=== PATIENT | male | born 1990 | race Two or more races ===

== ENCOUNTER 2024-05-17 16:04 | Emergency (ER) | payer MEDICAID, SELFPAY ==
[2024-05-17 16:05] VITALS: BMI 30.4
[2024-05-17 16:46] VITALS: BP 101/67; PULSE 100; RESP 18; TEMP 37.1; O2SAT 99
--- NOTE | 2024-05-17 17:06 | EDNOTE_ITS ---
ED Skin Abcess FB-RME/HPI General Chief complaint: Skin/Abscess/Foreign Body Stated complaint: SORE ON COCCYX X 4 DAYS Time Seen by Provider: 05/17/24 16:06 Arrival date/time: 05/17/24 16:04 34-year-old male with no reported medical problems presents to the emergency department complaints of 4-day history of abscess to his coccyx. Patient reports no fever nausea vomiting does report significant pain Limitations: no limitations Related Data Previous Rx's ?Medication ?Instructions ?Recorded clindamycin HCl 300 mg capsule 300 mg PO QID #40 caps 08/19/17 ibuprofen 600 mg tablet 600 mg PO Q8H PRN fever #30 tabs 08/19/17 ibuprofen 600 mg tablet 600 mg PO TID PRN pain #14 tabs 02/17/24 ondansetron 4 mg disintegrating 4 mg PO Q8H PRN nausea and 02/17/24 tablet vomiting #20 tabs clindamycin HCl 150 mg capsule 450 mg (3 x 150 mg) PO TID 7 days 05/17/24 #63 caps hydrocodone 5 mg-acetaminophen 325 1 tab PO BID PRN pain #10 tabs 05/17/24 mg tablet ibuprofen 800 mg tablet 800 mg PO TID PRN pain #30 tabs 05/17/24 Allergies Allergy/AdvReac Type Severity Reaction Status Date / Time avocado Allergy Severe SWELLING Verified 05/17/24 16:07 Review of Systems Review of Systems Systems Reviewed: All systems reviewed, normal except as documented Constitutional Constitutional: Reports system reviewed and no additional complaints, except as documented, Denies fever(s) and Denies headache(s) Eyes Eyes: Reports system reviewed and no additional complaints, except as documented and Denies blurry vision ENT Ears, Nose, Mouth, and Throat: Reports system reviewed and no additional complaints, except as documented, Denies headache(s), Denies nasal congestion and Denies nasal discharge Cardiovascular Cardiovascular: Reports system reviewed and no additional complaints, except as documented, Denies chest pain and Denies dyspnea Respiratory Respiratory: Reports system reviewed and no additional complaints, except as documented, Denies chest congestion, Denies cough and Denies dyspnea Gastrointestinal Gastrointestinal: Reports system reviewed and no additional complaints, except as documented and Denies abdominal pain Integumentary/Breasts Skin/Breast: Reports system reviewed and no additional complaints, except as documented, Denies rash and Reports other (Infected pilonidal cyst) Neurologic Neurologic: Reports system reviewed and no additional complaints, except as documented, Reports as per HPI and Denies headache(s) Past Medical History Past Medical History NEUROLOGIC: Negative Neurological Disorders CARDIAC: Negative Cardiac Disorders or Congestive Heart Failure RESPIRATORY: Positive Asthma; Negative Chronic Obstructive Pulmonary Disease (COPD) GASTROINTESTINAL: Negative Gastrointestinal Disorders or Hepatitis GENITOURINARY: Negative Genitourinary Disorders, Renal Disease or Prostate Cancer MUSCULOSKELETAL: Negative Musculoskeletal Disorders ENDOCRINE: Negative Endocrine Disorders, Diabetes Mellitus Type 1 or Diabetes Mellitus Type 2 HEMATOLOGIC: Negative Blood Disorders OTHER HISTORY: Negative Autoimmune Disease, Organ Transplant, MRSA, VRSA, Vancomycin-Resistant Enterococci, Human Immunodeficiency Virus (HIV), Chicken Pox, Measles, Mumps, Rubella (Danish Measles), Pertussis, Clostridium Difficile or Prostate Cancer Surgical History SURGICAL: Negative Cardiac Surgery, Endocrine Surgery, Ear Surgery, Abdominal Surgery, Nephrectomy, Joint Replacement, Neurologic Surgery, Vasectomy or Organ Transplant Social History SMOKING STATUS: Never smoker ED Exam General Limitations: Present no limitations General appearance: Present alert and in no apparent distress Head Head exam: Present atraumatic, normocephalic and normal inspection Eye Eye exam: Present normal appearance, PERRL and EOMI; Absent conjunctival injection ENT ENT exam: Present normal exam, normal oropharynx and mucous membranes moist Neck Neck exam: Present normal inspection, full ROM and trachea midline Chest Chest inspection: Present normal inspection and symmetric chest wall rise Respiratory Respiratory exam: Present normal lung sounds bilaterally Cardiovascular Cardiovascular exam: Present regular rate, normal rhythm and normal heart sounds Abdominal Exam Abdominal exam: Present soft and normal bowel sounds Extremities Exam Extremities exam: Present normal inspection and full ROM Back Exam Back exam: Present normal inspection, full ROM and tenderness (Pilonidal cyst infected) Neurological Exam Neurological exam: Present alert, oriented X3 and CN II-XII intact Psychiatric Psychiatric exam: Present normal affect and normal mood Skin Skin exam: Present warm, dry and other (Pilonidal cyst infected) Course Quality Measures none Orders Category Date Time Status Set Up Suture Tray STAT Care 05/17/24 16:39 Completed Wound Care NOW Care 05/17/24 16:39 Completed Lidocaine 1% 20 ml [Xylocaine 1% 20 ML] Med 05/17/24 16:40 Discontinued 2.1 ml INFL X1 ONE Lidocaine 1% 20 ml [Xylocaine 1% 20 ML] Med 05/17/24 16:38 Discontinued 20 ml INFL X1 ONE Tet,Diphth,Pertuss(Acell)-Tdap [Boostrix Vacc] Med 05/17/24 16:38 Discontinued 0.5 ml IMI .ONCE ONE cefTRIAXone [Rocephin] Med 05/17/24 16:40 Discontinued 1,000 mg IM X1 ONE Vital Signs Vital signs: Vital Signs Temperature 98.7 F 05/17/24 16:46 Pulse Rate 100 05/17/24 16:46 Respiratory Rate 18 05/17/24 16:46 Blood Pressure 101/67 05/17/24 16:46 Pulse Oximetry (%) 99 05/17/24 16:46 Oxygen Delivery Method Room Air 05/17/24 16:46 O2 saturation 99% room air within normal limits Procedures -ED Abscess I/D Site: other (Pilonidal cyst) Sedation/analgesia: none Local Anesthetic: lidocaine 1% Amount of anesthesia used (mL): 6 Technique: incised with #11 blade Amount of fluid expressed (mL): 30 Irrigation: Yes Packing used?: none Complications: pain Skin / Abscess / Foreign Body MDM Narrative MDM Narrative:: 34-year-old male with no reported medical problems presents to the emergency department complaints of 4-day history of abscess to his coccyx. Patient reports no fever nausea vomiting does report significant pain On exam patient has a large pilonidal cyst which appears to be infected no evidence of perianal abscess I&D performed and copious amounts of drainage/purulent material removed from the abscess Patient given Rocephin as well as pain medication tetanus updated Patient instructed to return tomorrow for repeat Rocephin injection Consultation: I spoke with Dr. Monteiro who states she will see the patient in her office on Patient data External records reviewed:: [facility] previous records Clinical information provided by:: patient Social determinants that could affect healthcare access:: none Patient has the following chronic illnesses:: None How is presenting disease/condition affected by chronic disease/condition?: no chronic disease Evaluation data The following diagnostics were reviewed and interpreted by me:: other (specify) (N/A) Lab and/or radiology exams considered but not ordered:: N/A Interpretation Summary: N/A Medications / Prescriptions Medications or Prescriptions considered but not ordered:: Given Medication administrations:: Medication Administration History Discontinued Medications Ceftriaxone Sodium (Ceftriaxone Sod Inj 1,000 Mg Vial) 1,000 mg IM X1 ONE Stop: 05/17/24 16:41 Last Admin: 05/17/24 17:26 Dose: 1,000 mg Documented By: Diphtheria/Tetanus/Acell Pertussis (Diphth,Pertuss(Acell),Tet Vac 0.5 Ml Vial) 0.5 ml IMi .ONCE ONE Stop: 05/17/24 16:39 Last Admin: 05/17/24 17:27 Dose: 0.5 ml Documented By: Lidocaine HCl (Lidocaine Hcl 1% 20 Ml Vial) 20 ml INFL X1 ONE Stop: 05/17/24 16:39 Last Admin: 05/17/24 17:25 Dose: 20 ml Documented By: Lidocaine HCl (Lidocaine Hcl 1% 20 Ml Vial) 2.1 ml INFL X1 ONE Stop: 05/17/24 16:41 Last Admin: 05/17/24 17:28 Dose: 2.1 ml Documented By: Given Consultations Consultation(s) initiated? (list below): Yes Consultation #1 (Physician, Specialty, Details): Dr. Monteiro Diagnosis Skin/Abscess Differential Diagnosis: abscess of skin or subcutaneous tissue and cellulitis Most likely diagnosis given after review of the tests above:: Infected pilonidal cyst Admission Indicated Admission indicated?: not indicated Admission Request Was there a request for admission?: No Disposition Plan Disposition Plan: Discharge Discharge Attestation Discharge Attestation: The patient and all family members were given an opportunity to ask questions and understood the discharge instructions. Discharge instructions specifically effects, indications for sooner follow up or return to the emergency department, and the expected course of current diagnosis. Patient condition: Stable Discharge Plan Plan Patient Disposition: HOME (Self Care) Disposition Comment: Stable Prescriptions/Referrals Prescriptions/Med Rec: New ibuprofen 800 mg tablet 800 mg PO TID PRN (Reason: pain) Qty: 30 0RF hydrocodone-acetaminophen 5-325 mg tablet 1 tab PO BID MDD 10 PRN (Reason: pain) Qty: 10 0RF clindamycin HCl 150 mg capsule 450 mg PO TID 7 Days Qty: 63 0RF No Action clindamycin HCl 300 mg capsule 300 mg PO QID Qty: 40 0RF ibuprofen 600 mg tablet 600 mg PO Q8H PRN (Reason: fever) Qty: 30 0RF ondansetron 4 mg tablet,disintegrating 4 mg PO Q8H PRN (Reason: nausea and vomiting) Qty: 20 0RF ibuprofen 600 mg tablet 600 mg PO TID PRN (Reason: pain) Qty: 14 0RF Referrals: Taisha Monteiro MD [Physician] - 05/21/24 9:00 am Problem List Clinical Impression: Infected pilonidal cyst Patient/Caregiver Discharge Instructions Education Materials: ED Cyst Pilonidal Infected IandD Additional Instructions: Please return tomorrow for repeat antibiotic injection Please call the office of Dr. Monteiro tomorrow for an appointment for inform them that you were seen in the emergency department and she states that she will see you in her office Print Language: Greenlandic Stand Alone Forms: Dorina Award Info., Patient Portal Info Letter Vaccines Vaccines Given During Stay: TDaP PA/UPHOLSTERY INSTRUCTOR Supervising Physician PA/UPHOLSTERY INSTRUCTOR Supervising Physician: Dr mccarthy
[2024-05-17] MEDS: LIDOCAINE HCL 1% 20 ML VIAL INFL (17:25)
[2024-05-17] MEDS: cefTRIAXone SOD INJ 1,000 MG VIAL 1000 MG IM (17:26)
[2024-05-17] MEDS: DIPHTH,PERTUSS(ACELL),TET VAC 0.5 ML VIAL IMi (17:27)
[2024-05-17] MEDS: LIDOCAINE HCL 1% 20 ML VIAL 2.1 ML INFL (17:28)
== END 2024-05-17 17:29 | disposition home or self-care (01) ==
PROVIDERS: Emergency Provider Emergency Medicine
DX: L05.91 Pilonidal cyst without abscess (principal); Z23 Encounter for immunization
CPT/HCPCS: 10080; 90471; 90715; 96372; 99283; J0696; J3490

== ENCOUNTER 2024-05-18 16:46 | Emergency (ER) | payer MEDICAID, SELFPAY ==
[2024-05-18 16:52] VITALS: BP 106/69; PULSE 86; RESP 18; TEMP 36.8; O2SAT 99; BMI 28.8
--- NOTE | 2024-05-18 17:10 | EDNOTE_ITS ---
ED Skin Abcess FB-RME/HPI General Chief complaint: Recheck/Abnormal Lab/Rx Stated complaint: RETURNING FOR REPEAT ABX INJECTION Time Seen by Provider: 05/18/24 17:10 Arrival date/time: 05/18/24 16:46 34-year-old male presents to the emergency department today patient was directed by myself to return today for repeat injection of antibiotics patient had a large pilonidal cyst which was drained by myself yesterday Limitations: no limitations Related Data Previous Rx's ?Medication ?Instructions ?Recorded clindamycin HCl 300 mg capsule 300 mg PO QID #40 caps 08/19/17 ibuprofen 600 mg tablet 600 mg PO Q8H PRN fever #30 tabs 08/19/17 ibuprofen 600 mg tablet 600 mg PO TID PRN pain #14 tabs 02/17/24 ondansetron 4 mg disintegrating 4 mg PO Q8H PRN nausea and 02/17/24 tablet vomiting #20 tabs clindamycin HCl 150 mg capsule 450 mg (3 x 150 mg) PO TID 7 days 05/17/24 #63 caps hydrocodone 5 mg-acetaminophen 325 1 tab PO BID PRN pain #10 tabs 05/17/24 mg tablet ibuprofen 800 mg tablet 800 mg PO TID PRN pain #30 tabs 05/17/24 Allergies Allergy/AdvReac Type Severity Reaction Status Date / Time avocado Allergy Severe SWELLING Verified 05/17/24 16:07 Review of Systems Review of Systems Systems Reviewed: All systems reviewed, normal except as documented Constitutional Constitutional: Reports system reviewed and no additional complaints, except as documented, Denies fever(s) and Denies headache(s) Eyes Eyes: Reports system reviewed and no additional complaints, except as documented and Denies blurry vision ENT Ears, Nose, Mouth, and Throat: Reports system reviewed and no additional complaints, except as documented, Denies headache(s), Denies nasal congestion and Denies nasal discharge Cardiovascular Cardiovascular: Reports system reviewed and no additional complaints, except as documented, Denies chest pain and Denies dyspnea Respiratory Respiratory: Reports system reviewed and no additional complaints, except as documented, Denies chest congestion, Denies cough and Denies dyspnea Gastrointestinal Gastrointestinal: Reports system reviewed and no additional complaints, except as documented and Denies abdominal pain Integumentary/Breasts Skin/Breast: Reports system reviewed and no additional complaints, except as documented, Denies rash and Reports wounds (Pilonidal cyst) Neurologic Neurologic: Reports system reviewed and no additional complaints, except as documented, Reports as per HPI and Denies headache(s) Past Medical History Past Medical History NEUROLOGIC: Negative Neurological Disorders CARDIAC: Negative Cardiac Disorders or Congestive Heart Failure RESPIRATORY: Positive Asthma; Negative Chronic Obstructive Pulmonary Disease (COPD) GASTROINTESTINAL: Negative Gastrointestinal Disorders or Hepatitis GENITOURINARY: Negative Genitourinary Disorders, Renal Disease or Prostate Cancer MUSCULOSKELETAL: Negative Musculoskeletal Disorders ENDOCRINE: Negative Endocrine Disorders, Diabetes Mellitus Type 1 or Diabetes Mellitus Type 2 HEMATOLOGIC: Negative Blood Disorders OTHER HISTORY: Negative Autoimmune Disease, Organ Transplant, MRSA, VRSA, Vancomycin-Resistant Enterococci, Human Immunodeficiency Virus (HIV), Chicken Pox, Measles, Mumps, Rubella ([place] Measles), Pertussis, Clostridium Difficile or Prostate Cancer Surgical History SURGICAL: Negative Cardiac Surgery, Endocrine Surgery, Ear Surgery, Abdominal Surgery, Nephrectomy, Joint Replacement, Neurologic Surgery, Vasectomy or Organ Transplant Social History SMOKING STATUS: Never smoker ED Exam General Limitations: Present no limitations General appearance: Present alert and in no apparent distress Head Head exam: Present atraumatic, normocephalic and normal inspection Eye Eye exam: Present normal appearance, PERRL and EOMI ENT ENT exam: Present normal exam, normal oropharynx and mucous membranes moist Neck Neck exam: Present normal inspection, full ROM and trachea midline Chest Chest inspection: Present normal inspection and symmetric chest wall rise Respiratory Respiratory exam: Present normal lung sounds bilaterally Cardiovascular Cardiovascular exam: Present regular rate, normal rhythm and normal heart sounds Abdominal Exam Abdominal exam: Present soft and normal bowel sounds Extremities Exam Extremities exam: Present normal inspection and full ROM Back Exam Back exam: Present normal inspection and full ROM Back 1 view image: 2 1. Pilonidal cyst Neurological Exam Neurological exam: Present alert, oriented X3 and CN II-XII intact Psychiatric Psychiatric exam: Present normal affect and normal mood Skin Skin exam: Present warm, dry, intact and normal color Course Quality Measures none Orders Category Date Time Status Lidocaine 1% 20 ml [Xylocaine 1% 20 ML] Med 05/18/24 17:10 Discontinued 2.1 ml INFL X1 ONE cefTRIAXone [Rocephin] Med 05/18/24 17:10 Discontinued 1,000 mg IM X1 ONE Vital Signs Vital signs: Vital Signs Temperature 98.2 F 05/18/24 16:52 Pulse Rate 86 05/18/24 16:52 Respiratory Rate 18 05/18/24 16:52 Blood Pressure 106/69 05/18/24 16:52 Pulse Oximetry (%) 99 05/18/24 16:52 Oxygen Delivery Method Room Air 05/18/24 16:52 O2 saturation 99% room air within normal limits Skin / Abscess / Foreign Body MDM Narrative MDM Narrative:: 34-year-old male presents to the emergency department today patient was directed by myself to return today for repeat injection of antibiotics patient had a large pilonidal cyst which was drained by myself yesterday On exam patient well-appearing patient does not appear ill or toxic On exam patient reports symptoms significantly better Patient given repeat injection of Rocephin Patient instructed to follow-up with the surgeon as discussed Patient data External records reviewed:: [facility] previous records Clinical information provided by:: patient Social determinants that could affect healthcare access:: none Patient has the following chronic illnesses:: None How is presenting disease/condition affected by chronic disease/condition?: no chronic disease Evaluation data The following diagnostics were reviewed and interpreted by me:: other (specify) (N/A) Lab and/or radiology exams considered but not ordered:: Consider not ordered Interpretation Summary: N/A Medications / Prescriptions Medications or Prescriptions considered but not ordered:: Given Medication administrations:: Medication Administration History Discontinued Medications Ceftriaxone Sodium (Ceftriaxone Sod Inj 1,000 Mg Vial) 1,000 mg IM X1 ONE Stop: 05/18/24 17:11 Last Admin: 05/18/24 17:18 Dose: 1,000 mg Documented By: GERARDO Lidocaine HCl (Lidocaine Hcl 1% 20 Ml Vial) 2.1 ml INFL X1 ONE Stop: 05/18/24 17:11 Last Admin: 05/18/24 17:19 Dose: 2.1 ml Documented By: GERARDO Given Consultations Consultation(s) initiated? (list below): No Diagnosis Skin/Abscess Differential Diagnosis: abscess of skin or subcutaneous tissue, allergic reaction to drug and cellulitis Most likely diagnosis given after review of the tests above:: Pilonidal cyst Admission Indicated Admission indicated?: not indicated Admission Request Was there a request for admission?: No Disposition Plan Disposition Plan: Discharge Discharge Attestation Discharge Attestation: The patient and all family members were given an opportunity to ask questions and understood the discharge instructions. Discharge instructions specifically effects, indications for sooner follow up or return to the emergency department, and the expected course of current diagnosis. Patient condition: Stable Discharge Plan Plan Patient Disposition: HOME (Self Care) Disposition Comment: Stable Prescriptions/Referrals Prescriptions/Med Rec: No Action clindamycin HCl 300 mg capsule 300 mg PO QID Qty: 40 0RF ibuprofen 600 mg tablet 600 mg PO Q8H PRN (Reason: fever) Qty: 30 0RF ondansetron 4 mg tablet,disintegrating 4 mg PO Q8H PRN (Reason: nausea and vomiting) Qty: 20 0RF ibuprofen 600 mg tablet 600 mg PO TID PRN (Reason: pain) Qty: 14 0RF ibuprofen 800 mg tablet 800 mg PO TID PRN (Reason: pain) Qty: 30 0RF hydrocodone-acetaminophen 5-325 mg tablet 1 tab PO BID MDD 10 PRN (Reason: pain) Qty: 10 0RF clindamycin HCl 150 mg capsule 450 mg PO TID 7 Days Qty: 63 0RF Problem List Clinical Impression: Infected pilonidal cyst Patient/Caregiver Discharge Instructions Education Materials: Pilonidal Cyst Additional Instructions: Keep your appointment with the surgeon as discussed for worsening symptoms return immediately Print Language: Yakut Stand Alone Forms: Dorina Award Info., Patient Portal Info Letter PA/APARTMENT COMMUNITY MANAGER Supervising Physician PA/APARTMENT COMMUNITY MANAGER Supervising Physician: Dr. morton
[2024-05-18] MEDS: cefTRIAXone SOD INJ 1,000 MG VIAL 1000 MG IM (17:18)
[2024-05-18] MEDS: LIDOCAINE HCL 1% 20 ML VIAL 2.1 ML INFL (17:19)
== END 2024-05-18 18:01 | disposition home or self-care (01) ==
LOC: SERX 17:46
PROVIDERS: Emergency Provider Emergency Medicine
DX: L05.91 Pilonidal cyst without abscess (principal)
CPT/HCPCS: 96372; 99283; J0696; J3490